=== PATIENT | male | born 1950 | race Caucasian/White ===

== ENCOUNTER → 2016-05-11 | Outpatient (CLI) | payer MEDICARE, BC | LOC: RAD 08:33 | DX: M75.41 Impingement syndrome of right shoulder (principal); M95.8 Other specified acquired deformities of musculoskeletal system ==

== ENCOUNTER → 2016-09-09 | Outpatient (CLI) | payer MEDICARE, BC | LOC: LAB 11:40 | DX: R73.02 Impaired glucose tolerance (oral) (principal); C61 Malignant neoplasm of prostate; I10 Essential (primary) hypertension; R20.2 Paresthesia of skin; M54.5 Low back pain ==

== ENCOUNTER → 2018-01-19 | Outpatient (CLI) | payer MEDICARE, BC | LOC: RAD 08:44 | DX: K62.89 Other specified diseases of anus and rectum (principal) | CPT/HCPCS: Q9967 ==

== ENCOUNTER → 2018-01-26 | Outpatient (CLI) | payer MEDICARE, BC | LOC: RAD 07:41 | DX: K62.89 Other specified diseases of anus and rectum (principal); C61 Malignant neoplasm of prostate; K60.4 Rectal fistula | CPT/HCPCS: A9585 ==

== ENCOUNTER → 2021-11-11 | Outpatient (CLI) | payer MEDICARE, BC | LOC: RAD 09:26 | DX: R22.31 Localized swelling, mass and lump, right upper limb (principal); R22.2 Localized swelling, mass and lump, trunk ==